=== PATIENT | male | born 1975 | race Caucasian/White ===

== ENCOUNTER 2017-10-26 01:34 | Emergency (ER) | payer OTHER ==
[2017-10-26] MEDS: IBUPROFEN 800 MG TAB PO (02:03)
== END 2017-10-26 02:06 | disposition home or self-care (01) ==
LOC: E/R 01:34
DX: S30.21XA Contusion of penis, initial encounter (principal); J45.909 Unspecified asthma, uncomplicated; X58.XXXA Exposure to other specified factors, initial encounter; Y92.9 Unspecified place or not applicable
CPT/HCPCS: 99283